=== PATIENT | male | born 1965 | race Caucasian/White ===

== ENCOUNTER 2022-08-26 11:04 | Emergency (ER) | payer MEDICARE, OTHER ==
[~2022-08-26] VITALS: Ht 180.3 cm; Wt 87.2 kg
[~2022-08-26 11:04] MED LIST: CLON0.5T3 PO; DOXY-286 PO; ESOM40CA39 PO; MIRT-66 OR; MORP30TA PO; TEMA30CA PO; TIZA2TAB4 PO
[2022-08-26] MEDS ORDERED: TETANUS-DIPTH-ACEL PERTUSSIS 0.5ML SYR Tdap IM ONE (13:00)
[2022-08-26 13:40] VITALS: BP 137/76
[2022-08-26] MEDS ORDERED: NEOMYCIN-BACITRACIN-POLYM 15GM TOP OINT TOP SCH (13:42)
[2022-08-26] MEDS ORDERED: CEPH-510 PO (13:47)
[2022-08-26] MEDS ORDERED: IBUP600T27 PO (13:47)
== END 2022-08-26 13:47 | disposition home or self-care (01) ==
LOC: EDBD 11:04 → ER 11:04
DX: S61.012A Laceration without foreign body of left thumb without damage to nail, initial encounter (principal); J44.9 Chronic obstructive pulmonary disease, unspecified; K21.9 Gastro-esophageal reflux disease without esophagitis; Z79.899 Other long term (current) drug therapy; W26.8XXA Contact with other sharp object(s), not elsewhere classified, initial encounter; Y93.89 Activity, other specified; Y92.89 Other specified places as the place of occurrence of the external cause; Y99.8 Other external cause status
CPT/HCPCS: 12001; 90471; 90715

== ENCOUNTER 2024-08-13 10:26 | Emergency (ER) | payer MEDICARE, OTHER ==
[~2024-08-13] VITALS: Ht 180.3 cm; Wt 88.5 kg
[~2024-08-13 10:26] MED LIST changes: +CEPH-510 PO; +IBUP-1454 PO; -MIRT-66 OR; +MIRT-94 OR; +TIZA1TAB20 PO; -TIZA2TAB4 PO
--- NOTE | 2024-08-13 11:10 | ED.PDOC ---
History of Present Illness HPI Comments HPI: Poor Historian. 59-year-old male with history of chronic pain on morphine sulfate and Neurontin and Ambien and acyclovir. Patient is running out of his morphine sulfate oral m edications. This was prescribed to him by the pharmacy has his prescription for morphine but held it off because he was prescribed Ambien by his primary doctor. Pharmacy wanted this to be cleared 1st by the prescribing doctor before they dispensed to the morphine. He tried to reach out to his primary care doctor's office but they are closed on the weekend. Patient states he still has some morphine and he shows me the bottle which would last him he says for another 6 hours at least. I offered him IV pain medications here in the ED or oral pain medications. VITALS: Temp: 98.2F RR: 18 02 sat : 99 % on room air HR: 87 BP: 138/63 PMH: chronic neck and back pain, neuropathy, herpes, PSH: pacemaker Social history: denies tobacco use, denies ETOH use, denies drug use Medications: acyclovir, Ambien, Neurontin Allergies: nkda REVIEW OF SYSTEMS: CONSTITUTIONAL: Denies acute: fever, diaphoresis, chills, generalized weakness. HEAD: Denies acute: headache, photophobia Eyes: Denies acute: Double vision, vision loss, eye pain, eye discharge. EARS: Denies acute: tinnitus, hearing loss, ear discharge, ear pain, THROAT: Denies acute: sore throat, swelling, difficulty swallowing , pain with swallowing, change in voice. NECK: Denies acute: neck pain, neck swelling, stiff neck. HEART: Denies acute : chest pain, palpitations, LUNGS: Denies acute: SOB, wheezing, cough, hemoptysis ABDOMEN: Denies acute: abdominal pain, Nausea, Vomiting, diarrhea, melena , hematemesis, hematochezia SKIN: Denies acute: rash, redness, lesions, itchiness. EXTREMITIES: Denies acute: calf pain, numbness, tingling, weakness, denies pain in extremity. Denies acute: Low back pain. Neuro: Denies acute: focal neurological deficit, motor or sensory focal neurological deficit, tremors, seizure like activity, confusion, dizziness, change in mental status, loss of bowel or bladder function, cauda equina like symptoms. : Denies acute: dysuria, hematuria, flank pain, increase in urinary frequency. PSYCH: Denies acute: hallucination, suicidal ideation, homicidal ideation. PHYSICAL EXAM: General: no acute distress, awake and alert. Head: normocephalic, atraumatic. Neck: supple, trachea is midline, no swelling. Throat: Normal phonation. Eyes:, no erythema, no purulent discharge, no proptosis, no icterus. Heart: regular rate, regular rhythm, no significant murmur appreciated. Lungs: no apparent respiratory distress, Able to speak in full sentences. No wheezing, no rhonchi, no crackles. No stridors Clear to auscultation bilaterally. Abdomen: non tender to palpation, non distended, soft, no guarding, no rebound, + bowel sounds. Neuro: Awake, Alert, oriented to name, self, situation, follows commands GCS=15. Speech is normal. Skin: no petechia, no purpura, no cyanosis, non-pale, not jaundice. Lower extremities: --no - Pitting edema no deformity, no focal swelling, no calf TTP. Makes eye contact. moves all four extremities. Face: no apparent facial droop. Ambulating in the ED independently. Chief Complaint: Back Pain Time Seen by MD: 10:39 Primary Care Provider: MOHAN Vee Notes: Medications, Allergies Allergies: Coded Allergies: NO KNOWN ALLERGIES (Unverified , 08/26/22) Home Meds Active Scripts Ibuprofen (Ibuprofen) 600 Mg Tab, 1 TAB PO TID, #20 TAB Prov:TREMAYNE SALDANA PAC 08/26/22 Cephalexin ( Keflex 500) 500 Mg Cap, 1 CAP PO QID for 7 Days, #28 CAP Prov:TREMAYNE SALDANA PAC 08/26/22 Doxycycline Hyclate (DOXYCYCLINE HYCLATE) 100 Mg Tab, 100 MG PO BID, #14 Prov:MIGUEL ÁNGEL MCCALL MD 06/01/14 Reported Medications Tizanidine Hydrochloride (Tizanidine Hcl) 2 Mg Tab, 2 MG PO TID, TAB 05/30/14 Mirtazapine (REMERON) 30 Mg Tab, 30 MG OR DAILY, TAB 05/30/14 Morphine Sulfate (Morphine Sulfate) 30 Mg Tab, 60 MG PO BIDPRN PRN for MODERATE PAIN, TAB 05/30/14 Esomeprazole Magnesium Trihydr (Nexium) 40 Mg Cap, 1 CAP PO DAILY, #30 CAP 5 Refills 05/30/14 Temazepam (Temazepam) 30 Mg Cap, 30 MG PO HS, CAP 05/30/14 Clonazepam (KlonoPIN TABLET) 0.5 Mg Tb, 0.5 MG PO DAILYP PRN for ANXIETY 05/30/14 Information Source: Patient Mode of Arrival: Ambulatory Past Medical History PAST MEDICAL HISTORY: COPD, GERD, PUD Surgical History: Hernia Repair Family History Family History: Unknown Social History Smoker: Non-Smoker Alcohol: Denies ETOH Use Drugs: Denies Drug Use Lives In: Home Was a procedure done? Was a procedure done?: No X-Ray, Labs, Meds, VS Vital Signs Date Time Temp Pulse Resp B/P (MAP) Pulse Ox O2 Delivery O2 Flow Rate FiO2 08/13/24 18:28 Room Air* 0 21 08/13/24 18:26 148/79 08/13/24 18:22 98.1 91 18 148/79 (102) 97 98.1 08/13/24 10:55 98.2 87 18 138/63 (88) 99 Current Medications Medications (Trade) Dose Ordered Sig/Rd Route Start Time Stop Time Status Last Admin Fentanyl Citrate 100 mcg ONCE ONCE IM 08/13/24 18:30 08/13/24 18:30 DC 08/13/24 18:26 Patient Education/Counseling: Diagnosis, Treatment Family Education/Counseling: No Family Present Additional Information MDM: Patient presented with the above HPI.--flu-like symptoms -workup was initiated. patient was found with the above mentioned diagnosis. the following medications were ordered: none the following tests were ordered: none Patient ED course and VS have been stabilized. Patient has been reassessed in the ED and remained in a stable condition. Patient has been observed in the ED adequate length of time to insure improvement/stability. Escalation of care considered: Consideration of escalation to observation or admission. patient was DISCHARGED after further evaluation and treatment of their presentation. All the reports of any imaging studies that were ordered by myself were reviewed by myself. Departure 1 Departure Time of Disposition: 17:48 Impression: Primary Impression: Chronic pain Additional Impression: Narcotic dependence Disposition: HOME / SELF CARE / HOMELESS Condition: Stable Additional Instructions: Additional discharge instructions: You MUST follow-up with your primary care/family doctor in 1 to 2 days. If you are unable to see your primary care/family doctor, please return to our emergency room for re-assessment and re-evaluation in 1 to 2 days. Return to the emergency room here in our facility or to the nearest ER [facility] if your symptoms change or worsen. CONSULTATIONS: you MUST Follow-up for consultation as soon as possible with: -pain management. Please call for appointment. You MUST call the consultants office yourself to make an appointment. You may need to arrange that through your insurance and/or your primary/family doctor. If you are unable to see the [facility] consultant in 1 to 2 days, you must return to our emergency room (or any other ER of your choice) for re-assessment and re- evaluation. Adequate fluid hydration. We are unable to refill your morphine sulfate dose. You must take this up with your providers. Discharged With: Self I personally scribed for STEVE ROBLEDO DO ([email or web address]) on 08/13/24 at 11:10. Electronically submitted by Nakia Delong ([email or web address]). I personally scribed for STEVE ROBLEDO DO ([email or web address]) on 08/13/24 at 12:38. Electronically submitted by Nakia Delong ([email or web address]). I personally scribed for STEVE ROBLEDO DO ([email or web address]) on 08/13/24 at 22:27. Electronically submitted by Nakia Delong ([email or web address]). STEVE ROBLEDO DO Aug 13, 2024 11:10
[2024-08-13] MEDS: HYDROcodone-ACET 10/325MG TAB PO ONE (17:45)
[2024-08-13 18:22] VITALS: PULSE 91; RESP 18; TEMP 98.1; O2SAT 97
[2024-08-13 18:26] VITALS: BP 148/79
[2024-08-13] MEDS: fentaNYL CITRATE 100 MCG/2 ML VL IM ONE (18:26)
== END 2024-08-13 18:30 | disposition home or self-care (01) ==
LOC: ER 10:26
DX: G89.29 Other chronic pain (principal); M54.2 Cervicalgia; M54.9 Dorsalgia, unspecified; F11.20 Opioid dependence, uncomplicated; J44.9 Chronic obstructive pulmonary disease, unspecified; K21.9 Gastro-esophageal reflux disease without esophagitis; Z79.1 Long term (current) use of non-steroidal anti-inflammatories (NSAID); Z79.899 Other long term (current) drug therapy; Z87.11 Personal history of peptic ulcer disease; Z95.0 Presence of cardiac pacemaker; Z98.890 Other specified postprocedural states
CPT/HCPCS: 96372; 99283; J3010